=== PATIENT | female | born 2000 | race African-American/Black ===

== ENCOUNTER 2019-05-05 15:25 | Emergency (ER) | payer OTHER ==
[~2019-05-05] VITALS: Ht 162.6 cm; Wt 80.0 kg
[2019-05-05] MEDS ORDERED: KETOROLAC 60MG/2ML VIAL IM ONE (16:00)
[2019-05-05 16:25] LABS: CLARITY URINE CLEAR (CLEAR); COLOR URINE YELLOW (YELLOW); KETONES URINE NEGATIVE (NEGATIVE); LEUKOCYTE ESTERASE URINE 2+ (NEGATIVE); NITRITE URINE NEGATIVE (NEGATIVE); OCCULT BLOOD URINE NEGATIVE (NEGATIVE); PH URINE 7.5 (4.5-8.0); PROTEIN URINE NEGATIVE (NEGATIVE); SPECIFIC GRAVITY URINE 1.015 (1.005-1.030)
[2019-05-05 16:39] VITALS: BP 119/70
== END 2019-05-05 16:41 | disposition home or self-care (01) ==
LOC: ER 15:25
DX: M54.5 Low back pain (principal); N39.0 Urinary tract infection, site not specified
CPT/HCPCS: 81003; 81025; 96372; 99283; J1885

== ENCOUNTER 2019-08-19 21:20 | Emergency (ER) | payer SELFPAY ==
[~2019-08-19] VITALS: Ht 165.1 cm; Wt 73.7 kg
[2019-08-20 04:41] VITALS: BP 105/61
== END 2019-08-20 04:53 | disposition home or self-care (01) ==
LOC: ER 21:20
DX: R07.9 Chest pain, unspecified (principal)
CPT/HCPCS: 71045; 81025; 99283